=== PATIENT | female | born 1980 | race Caucasian/White ===

== ENCOUNTER 2017-03-16 17:14 | Emergency (ER) | payer MEDICAID ==
[2017-03-16 18:04] VITALS: BMI 28.3
[2017-03-16 18:49] LABS: BASO # 0.1 K/uL (0.0-0.2); BASO % 0.6 % (0.0-2.0); EOS # 0.1 K/uL (0.0-0.7); EOS % 0.7 % (0.0-4.0); LYMPH # 3.1 K/uL (1.0-4.3); LYMPH % 29.6 % (20.0-40.0); MEAN CELL VOLUME 79.1 fL (81.0-99.0); MEAN CORPUSCULAR HEMOGLOBIN 25.5 pg (27.0-31.0); MEAN CORPUSCULAR HGB CONC 32.2 g/dL (33.0-37.0); MEAN PLATELET VOLUME 7.8 fL (7.2-11.7); MONO # 0.9 K/uL (0.0-0.8); MONO % 8.4 % (0.0-10.0); NEUT # 6.4 K/uL (1.8-7.0); NEUT % 60.7 % (50.0-75.0); NRBC % 0.1 % (0.0-2.0); RBC 4.71 Mil/uL (3.80-5.20); RED CELL DISTRIBUTION WIDTH 15.1 % (11.5-14.5); WHITE BLOOD COUNT 10.6 K/uL (4.8-10.8)
[2017-03-16 18:57] LABS: ALBUMIN 3.5 g/dL (3.5-5.0); ALT/SGPT 25 U/L (9-52); AST/SGOT 18 U/L (14-36); BLOOD UREA NITROGEN 6 mg/dL (7-17); CALCIUM 8.9 mg/dl (8.6-10.4); GFR AFRICAN-AMERICAN > 60; GFR NON-AFRICAN AMERICAN > 60; URIC ACID 3.3 mg/dL (2.2-7.5)
[2017-03-16 19:04] LABS: SQUAMOUS EPITHIAL 18 /hpf (0-5); URINE BACTERIA RARE (<OCC); URINE BILIRUBIN NEGATIVE (NEGATIVE); URINE BLOOD NEGATIVE (NEGATIVE); URINE CLARITY Hazy (Clear); URINE COLOR Yellow (YELLOW); URINE GLUCOSE (UA) 3+ mg/dL (Normal); URINE LEUKOCYTE ESTERASE NEG Leu/uL (Negative); URINE NITRATE NEGATIVE (NEGATIVE); URINE PROTEIN 2+ mg/dL (NEGATIVE); URINE UROBILINOGEN NORMAL mg/dL (0.2-1.0)
--- NOTE | 2017-03-16 19:57 | US ---
EXAM: US Biophysical Profile Without Non-Stress Testing EXAM DATE/TIME: Exam ordered 03/16/2017 6:05 PM CLINICAL HISTORY: 36 years old, female; Signs and symptoms; Other: Elevated BP; TECHNIQUE: Real-time ultrasound of the maternal pelvis for biophysical profile evaluation with image documentation. COMPARISON: No relevant prior studies available. FINDINGS: Presentation: Cephalic Cervix: 3.3 cm in length Heart rate: 150 beats per minute Placenta: Anterior and free of the cervical os OBI: 15.4 Estimated weight: 2520 g Biometry BPD = [8.7 cm]; Estimated Menstrual Age = [35 w 1 d]; Range = [32W 2D-38W 3D] HC = [30.67 cm]; Estimated Menstrual Age = [34 w 1 d]; Range= [+/-64L0T-68T0Z] AC = [31.1 cm]; Estimated Menstrual Age = [35 w 0 d]; Range = [+/- 49E5A-62X9Q] FL = [6.79 cm]; Estimated Menstrual Age = [34 w 6 d]; Range = [+/- 07O3U-89H2 D] breathing movements: Present. Score 2/2. Gross body movements: Present. Score 2/2. tone: Present. Score 2/2. Qualitative amniotic fluid volume: Within normal limits. Score 2/2. survey: Three-vessel cord: Normal Abdominal CORD insertion: Normal Kidneys: Normal Stomach: Normal IMPRESSION: 1. Normal biophysical profile ultrasound. Score 8/8. 2. Single live intrauterine with an estimated menstrual age of 34 weeks and 6 days plus or -2 weeks and 3 days. Expected date of confinement 04/21/2017
--- NOTE | 2017-03-16 20:41 | OBHP ---
Datetime: 03/16/2017 18:05 IP Admit Plan: Observation/Evaluation; Discharge home Admit Comment, IP Provider: CC: Evaluation for elevated BP HPI: Patient is a 36 year old at 34 weeks and 4 days with LMP ( 07/17/16) with RUKHSANA (04/23/17 ) dated by US. Patient presents to labor and delivery as per her provider for noted elevated BP readi ng in the clinic. Patient denies fever, chills, nausea, vomiting, chest pain, palpitations, epigastri c or RUQ pain, blurry vision, headache. 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 Unemployed. Denies currr ent or former tobacco, ETOH and illicit drug use VS: BP: 120/78, HR: 115 Physical Exam: See above A/P: 36 year old at 34.4 weeks referred from clinic for evaluation of elevated BP 140-150/ 80 1. Stable, Afebrile 2. CEFM 3. BPP/US---> BPP(8), Vertex, placenta anterior 4. induced hypertension panel: CMP, CBC, LDH, URIC ACID---> PIH panel within normal limi ts 5. UA: 2+ protein, negative for UTI 5. Discharge with prescription for 24 hour urine collection, to f/u outpatient 6. Plans discussed with attending Zaire Faulkner DO, PGY-1 Attending Note: patient seen and evaluated by me with Resident. - Transient BP elevations: most likely psychogenic (patient was anxious after visit); how ever, with proteinuria, cannot exclude pre-eclampsia. BPs on L_D 117-140/71-88. - A1GDM. patient has not been keeping a log of F.S. Has repeat glucose test tomorrow. glucosuria n oted (patient last ate approx 1100 hours) Plan: 1) as above. Extremities - PN: Normal Abdomen - PN: Normal Lungs - PN: Normal Heart - PN: Normal HEENT - PN: Normal General - PN: Normal FHR - Baseline A Provider: 140 Comments, ACOG Physical Exam: Gen: NAD Cardio: RRR, normal S1, S2 Pulm: CTA bilaterally Abdomen: Soft, gravid, FH: 35cm Ext: No edema, no cyanosis and no clubbing EFM: -FHR: 140, + accels, - accels - [place]: None Gestation - Est Wks by US: 34.4 NICHD Decel Fetus A IP Provider: None
[2017-03-17 00:51] VITALS: BP 126/84; PULSE 123; RESP 18; TEMP 98.7; O2SAT 99
== END 2017-03-16 20:00 | disposition home or self-care (01) ==
LOC: C.EROB 17:14
DX: O16.3 Unspecified maternal hypertension, third trimester (principal); Z3A.34 34 weeks gestation of pregnancy

== ENCOUNTER 2017-04-05 15:01 | Emergency (ER) | payer MEDICAID ==
--- NOTE | 2017-04-05 15:23 | OBHP ---
Datetime: 04/05/2017 15:19 IP Adm Impression: Term, intrauterine IP Chief Complaint Other: r/o preeclampsia Admit Comment, IP Provider: at 37+weks her for r/o preeclampsia,no hecahe or blurry vision, no ctxs, vvb, lof+fm. obhx 2 x ,1x sab pmh gd,a1 med pnv all nkda psh den soch den ve /-3 a/p at 37weeks r/o preeclampsia npo/ivf pih labs bp monitoring cont carroll and efm cont close Pelvic Type - PN: Adequate Extremities - PN: Normal Abdomen - PN: Normal Back - PN: Normal Breast - PN: Normal Lungs - PN: Normal Heart - PN: Normal Thyroid - PN: Normal Neurologic - PN: Normal HEENT - PN: Normal General - PN: Normal FHR - Baseline A Provider: 130 Contraction Comments Provider: irrg Vital Signs Provider: Reviewed; Within Normal Limits NICHD Variability Prov Fetus A: Moderate 6-25bpm NICHD Accel Fetus A IP Provider: 10X10 FHR Category Provider Fetus A: Category I Dilatation, Provider: 1 Effacement, Provider: 50 Station, Provider: -3 Genitourinary Exam: Normal DTRs - PN: Normal
[2017-04-05 15:26] VITALS: BMI 29.2
[2017-04-05] MEDS ORDERED: Lactated Ringer's 1,000 ML IV SCH (15:30)
[2017-04-05 15:58] LABS: HEMOGLOBIN 12.1 g/dL (11.0-16.0); MEAN CELL VOLUME 77.9 fL (81.0-99.0); MEAN CORPUSCULAR HEMOGLOBIN 25.5 pg (27.0-31.0); MEAN CORPUSCULAR HGB CONC 32.8 g/dL (33.0-37.0); MEAN PLATELET VOLUME 8.2 fL (7.2-11.7); RBC 4.74 Mil/uL (3.80-5.20); RED CELL DISTRIBUTION WIDTH 15.8 % (11.5-14.5); WHITE BLOOD COUNT 8.7 K/uL (4.8-10.8)
[2017-04-05 16:05] LABS: SQUAMOUS EPITHIAL 16 /hpf (0-5); URINE BACTERIA RARE (<OCC); URINE BILIRUBIN NEGATIVE (NEGATIVE); URINE BLOOD NEGATIVE (NEGATIVE); URINE CLARITY Hazy (Clear); URINE COLOR Yellow (YELLOW); URINE GLUCOSE (UA) NORMAL (Normal); URINE LEUKOCYTE ESTERASE TRACE Leu/uL (Negative); URINE NITRATE NEGATIVE (NEGATIVE); URINE PROTEIN 1+ mg/dL (NEGATIVE); URINE UROBILINOGEN NORMAL mg/dL (0.2-1.0)
[2017-04-05 16:06] LABS: PROTHROMBIN TIME 11.1 SECONDS (9.7-12.2)
[2017-04-05 16:23] LABS: ALBUMIN 3.7 g/dL (3.5-5.0); ALT/SGPT 26 U/L (9-52); AST/SGOT 33 U/L (14-36); BILIRUBIN,DIRECT 0.1 mg/dL (0.0-0.4); BLOOD UREA NITROGEN 7 mg/dL (7-17); CALCIUM 9.4 mg/dl (8.6-10.4); GFR AFRICAN-AMERICAN > 60; GFR NON-AFRICAN AMERICAN > 60
--- NOTE | 2017-04-05 17:12 | OBHP ---
Datetime: 04/05/2017 17:08 Admit Comment, IP Provider: pt as seen at bed side. feels good,no hedache r blurry vision blood work nor bp nor plan dc home preeclamtic s/s given labor ins given po hy f/u in [facility] on 03/09/17 FHR - Baseline A Provider: 130 Contraction Comments Provider: irrg Vital Signs Provider: Reviewed; Within Normal Limits NICHD Variability Prov Fetus A: Moderate 6-25bpm NICHD Accel Fetus A IP Provider: 15X15 FHR Category Provider Fetus A: Category I
--- NOTE | 2017-04-05 17:14 | OBDCSUM ---
Datetime: 04/05/2017 17:11 Discharged to, Provider: Home Follow up at, Provider: 04/09 Follow up in weeks, Provider: [facility] (formerly [facility])[3] Discharge Comment, Provider: dc home preeclamtic s/s given labor ins given po hy f/u in [facility] on 03/09/17 Discharge Diagnosis Prov Other: 37wek pih gdma1
[2017-04-05 21:47] VITALS: BP 127/69; PULSE 110; TEMP 97.9
== END 2017-04-05 17:25 | disposition home or self-care (01) ==
LOC: C.EROB 15:01
DX: O26.93 Pregnancy related conditions, unspecified, third trimester (principal); Z3A.37 37 weeks gestation of pregnancy
CPT/HCPCS: 80053; 81001; 82248; 82948; 83615; 85027; 85610; 85730; 99283; J7120

== ENCOUNTER 2017-04-08 19:49 | Inpatient (IN) | payer MEDICAID ==
[2017-04-08] MEDS ORDERED: Penicillin G 5 Million Unit Vial IVPB ONE ×2 (21:06→21:56)
[2017-04-08] MEDS ORDERED: Lactated Ringer's 1,000 ML IV SCH (21:15)
[2017-04-08 21:42] LABS: BASO % 0.5 % (0.0-2.0); EOS # 0.1 K/uL (0.0-0.7); EOS % 0.7 % (0.0-4.0); HEMOGLOBIN 12.1 g/dL (11.0-16.0); LYMPH # 3.4 K/uL (1.0-4.3); LYMPH % 35.5 % (20.0-40.0); MEAN CELL VOLUME 77.3 fL (81.0-99.0); MEAN CORPUSCULAR HEMOGLOBIN 25.4 pg (27.0-31.0); MEAN CORPUSCULAR HGB CONC 32.8 g/dL (33.0-37.0); MONO # 0.8 K/uL (0.0-0.8); MONO % 8.3 % (0.0-10.0); NEUT # 5.3 K/uL (1.8-7.0); NRBC % 0.1 % (0.0-2.0); RBC 4.77 Mil/uL (3.80-5.20); WHITE BLOOD COUNT 9.6 K/uL (4.8-10.8)
[2017-04-08 21:52] LABS: SQUAMOUS EPITHIAL 16 /hpf (0-5); URINE BACTERIA RARE (<OCC); URINE BILIRUBIN NEGATIVE (NEGATIVE); URINE BLOOD NEGATIVE (NEGATIVE); URINE CLARITY Hazy (Clear); URINE GLUCOSE (UA) 3+ mg/dL (Normal); URINE LEUKOCYTE ESTERASE NEG Leu/uL (Negative); URINE NITRATE NEGATIVE (NEGATIVE); URINE PROTEIN 1+ mg/dL (NEGATIVE); URINE UROBILINOGEN NORMAL mg/dL (0.2-1.0)
[2017-04-08 21:53] LABS: URINE COLOR YELLOW (YELLOW)
[2017-04-08 21:59] LABS: ALBUMIN 3.5 g/dL (3.5-5.0); ALT/SGPT 24 U/L (9-52); AST/SGOT 21 U/L (14-36); BLOOD UREA NITROGEN 6 mg/dL (7-17); GFR AFRICAN-AMERICAN > 60; GFR NON-AFRICAN AMERICAN > 60
[2017-04-09] MEDS ORDERED: cefOXitin 2 GM in Sodium Chloride 0.9% 100 ML IVPB ONE (03:06)
[2017-04-09] MEDS ORDERED: Sodium Citrate/Citric Acid 15 ml Sol PO ONE (03:15)
[2017-04-09] MEDS ORDERED: Morphine 1 mg/ml preservative-free Inj(Duramorph) ONE (03:26)
[2017-04-09] MEDS ORDERED: Oxytocin 30 UNIT 0 UNITS/0 ML BAG IV ONE (03:49)
[2017-04-09] MEDS ORDERED: Oxytocin 10 Units/ml Inj ONE (03:52)
[2017-04-09] MEDS ORDERED: Phenylephrine 10 mg/ml Inj ONE (04:20)
--- NOTE | 2017-04-09 04:53 | PCM.SURG1 ---
Surgeon's Initial Post Op Note - Surgeon's Notes Surgeon: Dr Andrew Follow Up Rep: Dr Benz Type of Anesthesia: Spinal Anesthesia Administered By: Dr Harp Pre-Operative Diagnosis: IUP at 38wks in labor,. Non reassuring Heart rate tracing. GDMA1 Operative Findings: Live female infant with BW of 7ibs 10oz , scores of 9 and 9, delivered in cephalic presentation in REG, fundal placenta, clear amniotic fluid. Fundal placenta. Uterus, both fallopian tubes and ovaries appears normal. IVF 1500mls. EBL- 600mls. Urine output- 200mls Post-Operative Diagnosis: Same as Preop diagnosis Operation Performed: Primary Low transverse Section. Specimen/Specimens Removed: Placenta Estimated Blood Loss: EBL {In ML}: 600 Blood Products Given: N/A Post-Op Condition: Good Date of Surgery/Procedure: 04/09/17 Time of Surgery/Procedure: 04:55
[2017-04-09] MEDS ORDERED: Lactated Ringer's 1,000 ML IV SCH (05:15)
[2017-04-09] MEDS: Simethicone 80 mg Chewtab PO SCH ×4 (09:27→21:05)
[2017-04-09] MEDS: cefOXitin 2 GM in Sodium Chloride 0.9% 100 ML IVPB SCH ×2 (12:40→20:21)
--- NOTE | 2017-04-09 16:23 | OP ---
PROCEDURE DATE: 04/09/2017 SURGEON: Edilberto Andrew MD MEAT LOINER: Dakotah Benz MD. Assistance to this procedure was needed for exposure of tissues and help in the delivery of the baby. Polygraph Technician remained with the surgery throughout its entire length. PREOPERATIVE DIAGNOSES: Intrauterine at 38 weeks in labor with nonreassuring heart tracing, gestational diabetes mellitus A1. POSTOPERATIVE DIAGNOSES: Intrauterine at 38 weeks in labor with nonreassuring heart tracing, gestational diabetes mellitus A1. PROCEDURE: Primary low-transverse section. TYPE OF ANESTHESIA: Spinal, anesthesia administered by Maverick Harp MD. OPERATIVE FINDINGS: Live female with weight of 7 pounds 10 ounces, scores of 9 in the first and fifth minutes respectively. Delivered in cephalic presentation in the left occipital anterior position. Placenta was fundal. There was no nuchal cord. Amniotic fluid was clear. The uterus as well as both fallopian tubes and ovaries appeared normal. IV fluid intake was 1500 mL. Estimated blood loss 600 mL. Urine output 200 mL of clear urine. There were no complications. SPECIMENS SENT: Placenta and umbilical cord blood. DESCRIPTION OF PROCEDURE: After obtaining informed consent after going through all the risks, benefits, and alternatives to the procedure of the section including but not restricted to injury to vital organs like bladder, bowels, and major blood vessels and the possibility of hemorrhage leading to hysterectomy, the patient obtained a consent. The patient was then sent to the OR with IV running and Pierre catheter in place. The patient sat on the OR table, and after adequate spinal anesthesia, was put in a supine position with a left lateral tilt. The patient was then prepped and draped in the usual sterile fashion. A Pfannenstiel skin incision was made using a scalpel about 2.5 cm from the pubic symphysis. This incision was carried through the subcutaneous tissues. The rectus fascia was identified. Using a Bovie device, a transverse incision was made in the rectus fascia, and this was extended to both sides by means of blunt dissection and sharp dissection. The rectus fascia was lifted off the underlying rectus muscles both superiorly and inferiorly by means of blunt dissection and sharp dissection with Brannon scissors. The rectus muscle was in the midline to expose the peritoneum which was tented between two Arely clamps and sharply entered with good visualization of the bladder. Once the abdominal cavity was entered, the vesicouterine fold of peritoneum was identified, was incised in a transverse fashion using the Metzenbaum scissors, and then this was retracted inferiorly to expose the lower uterine segment. A low-transverse incision was made at this point using a scalpel. The incision was extended through the myometrial layer, so the underlying amniotic membranes were identified. The incision was extended to both sides by means of a blunt dissection. Amniotic membranes were ruptured with pickup forceps, and the baby which was positioned in the left occipital anterior position in the cephalic presentation was delivered. The mouth and nostrils were bulb suctioned, and the three-vessel cord was clamped and cut, and the baby was given to the nurse. Umbilical cord blood was obtained for analysis. The placenta was manually removed from the uterine cavity. The uterus was then brought out of the abdominal cavity, and the uterine cavity cleaned of all debris using dry laparotomy pad. The uterine incision was then closed in two layers using Vicryl #0. The first layer in a running locked fashion and the second layer in a running fashion imbricating the first layer. This was conducted until hemostasis was noted. Irrigation of the pelvis using warm normal saline was done at this time to remove all clots in the pelvis. The uterus was then returned into the abdominal cavity, and once all the lap instruments were taken out of the abdomen, attention was turned to the anterior abdominal wall which was closed in layers with 2-0 Vicryl for the peritoneum and the rectus muscles. The rectus fascia was reapproximated using Vicryl #0. The subcutaneous tissues were brought together by means of #2-0 plain catgut. The skin was closed in a subcuticular fashion using #4-0 Vicryl. All counts of instruments, laparotomy pads, and needles used were correct x3, and the patient was sent to the recovery room awake and in stable condition. Edilberto Andrew MD
[2017-04-09] MEDS: Oxycodone/Acetaminophen 5/325 mg Tab PO PRN (20:17)
[2017-04-10] MEDS: cefOXitin 2 GM in Sodium Chloride 0.9% 100 ML IVPB SCH (03:01)
[2017-04-10 08:47] LABS: BASO # 0.1 K/uL (0.0-0.2); BASO % 0.7 % (0.0-2.0); EOS % 0.4 % (0.0-4.0); HEMOGLOBIN 10.8 g/dL (11.0-16.0); LYMPH # 2.7 K/uL (1.0-4.3); LYMPH % 20.8 % (20.0-40.0); MEAN CELL VOLUME 77.9 fL (81.0-99.0); MEAN CORPUSCULAR HEMOGLOBIN 25.1 pg (27.0-31.0); MEAN CORPUSCULAR HGB CONC 32.2 g/dL (33.0-37.0); MEAN PLATELET VOLUME 7.9 fL (7.2-11.7); MONO # 0.7 K/uL (0.0-0.8); MONO % 5.6 % (0.0-10.0); NEUT # 9.4 K/uL (1.8-7.0); NEUT % 72.5 % (50.0-75.0); NRBC % 0.1 % (0.0-2.0); RBC 4.32 Mil/uL (3.80-5.20); WHITE BLOOD COUNT 12.9 K/uL (4.8-10.8)
[2017-04-10] MEDS: Oxycodone/Acetaminophen 5/325 mg Tab PO PRN ×2 (09:01→17:11)
[2017-04-10] MEDS: Simethicone 80 mg Chewtab PO SCH ×4 (10:04→21:00)
--- NOTE | 2017-04-10 12:28 | OBPPN ---
Datetime: 04/10/2017 08:28 PP Pain Prov: Within normal limits PP Nausea Prov: Denies PP Flatus Prov: Yes PP BM Prov: No PP Breasts Prov: Normal PP Heart Prov: Normal PP Lungs Prov: Normal PP Abdomen/Uterus Prov: Normal PP Lochia Prov: Normal PP Extremities Prov: Normal PP C/S Incision Prov: Normal PP Progress Prov: Normal PP Comments Phys Exam Prov: pfannensteil incision: c/d/i PP Impression Prov: Normal progression PP Plan Prov: Continue present management PP Progress Note Prov: Patient seen and examined at bedside. Per nursing no acute events overnight. Patient is doing well, pain is controlled. States having pain at incision site, 7/10. Lochia is moder ate. Ambulating and tolerating. Passing flatus, no BM. Urinating without difficulty. Breast and bottl e feeding. Denies headaches, dizziness, cp, palpitations, sob, urinary symptoms. VS: 113/69 75 99.0 I/O 2375/1100 Gen: AAOx3 CV: RRR Lungs: CTA B/L Abdomen: soft, appropriately tender, hypoactive bowel sounds, incision c/d/i, fundus firm at umbil icus Ext: No clubbing, cyanosis, edema; no calf tenderness Labs: 9.6>12.1/36.9<365 F/U am CBC B positive Rubella immune A/P: 36 year old at 38w0d s/p PLTCD 2/2 NRFHT POD#1 -Stable, afebrile -Pain contol: Percocet and motrin prn -F/U am CBC -Encourage ambulation and hydration -Encourage breast feeding and ISS use -Continue routine care -Plan discussed with Dr Prince Araujo DO PGY-1 ob attending addaendum: pt seen _ examined by me. agree w/ above assessment andplan w/ following modifications and additio ns. p: d/c motrin or nsaids for pain- may cause increase in BP and pt w/ h/p gest htn sennokot s begin today. rx in chart for d/c- pnv, feso4, sennokots, _ percocet. pt advised percocet can be addicting and use sparingly. may supplement w/ tylenol. advised not to use motrin/nsaids given se of increase in bp. IP PP Procedures: None Vital Signs Provider PP: Reviewed; Within Normal Limits
[2017-04-10] MEDS ORDERED: Oxycodone/Acetaminophen 5/325 mg Tab PO PRN (16:06)
[2017-04-10] MEDS: Docusate-Senna 50 mg-8.6 mg Tab PO PRN (17:11)
[2017-04-11 07:40] VITALS: RESP 18
[2017-04-11] MEDS: Simethicone 80 mg Chewtab PO SCH ×4 (10:00→21:34)
[2017-04-11] MEDS: Docusate-Senna 50 mg-8.6 mg Tab PO PRN (12:04)
[2017-04-11] MEDS: Oxycodone/Acetaminophen 5/325 mg Tab PO PRN (14:53)
[2017-04-11] MEDS ORDERED: Bisacodyl 5mg EC Tab PO ONE (16:06)
--- NOTE | 2017-04-11 17:40 | OBPPN ---
Datetime: 04/11/2017 07:45 PP Pain Prov: Within normal limits PP Nausea Prov: Denies PP Flatus Prov: Yes PP BM Prov: No PP Heart Prov: Normal PP Lungs Prov: Normal PP Lochia Prov: Normal PP CVA Tenderness Prov: Normal PP Extremities Prov: Normal PP C/S Incision Prov: Normal PP Progress Prov: Normal PP Impression Prov: Normal progression PP Plan Prov: Continue present management PP Progress Note Prov: Patient seen and examined at bedside. Per nursing no acute events overnight. Patient is doing well, pain is controlled. Lochia is moderate and decreasing. Ambulating and tolerati ng diet. Passing flatus, no BM. Urinating without difficulty. Breast and bottle feeding. Denies heada ches, dizziness, cp, palpitations, sob, urinary symptoms. VS: 123/66 80 97.9 Gen: AAOx3 CV: RRR Lungs: CTA B/L Abd: Soft, appropriately tender, incision c/d/i, fundus firm at umbilicus Ext: No clubbing, cyanosis, edema; no calf tenderness Labs: 9.6>12.1/36.9<365 12.9>10.8/33.7<343 B positive Rubella immune A/P: 36 year old at 38w0d s/p PLTCD 2/2 NRFHT POD#2 -Stable, afebrile -Pain control: percocet prn -Encourage ambulation and hydration -Encourage breast feeding -Continue routine care -Anticipate d/c home tomorrow -Plan discussed with attending Michela Araujo DO PGY-1 patient examined.agree with residen exam, assessment and plan Vital Signs Provider PP: Reviewed; Within Normal Limits
[2017-04-11 18:20] VITALS: O2SAT 99
--- NOTE | 2017-04-12 07:29 | OBDCSUM ---
Datetime: 04/12/2017 07:27 Discharged to, Provider: Home Follow up at, Provider: 1-2wee Discharge Diagnosis, Provider: Term Delivered Follow up in weeks, Provider: clinic Discharge Comment, Provider: no sex percocet prn f/u in 2week Discharge Diagnosis Prov Other: sa/p c/s
--- NOTE | 2017-04-12 07:30 | OBPPN ---
Datetime: 04/12/2017 07:26 PP Pain Prov: Within normal limits PP Nausea Prov: Denies PP Flatus Prov: Yes PP Abdomen/Uterus Prov: Normal PP Lochia Prov: Normal PP Extremities Prov: Normal PP Comments Phys Exam Prov: fudus below um ext no edema,no calgf ten incision clean and dry PP Impression Prov: Normal progression PP Plan Prov: Discharge PP Progress Note Prov: pt was seen at bed side, pain under control,no n/v, tolerating deit,voiding,m in lochia, flatus+ pod#3 s/p c/s dc home no sex percocet prn f/u dr rgeco in 2week Vital Signs Provider PP: Reviewed; Within Normal Limits
[2017-04-12] MEDS: Simethicone 80 mg Chewtab PO SCH (10:53)
[2017-04-12 18:18] VITALS: BP 126/84; PULSE 74; TEMP 97.7
== END 2017-04-12 13:50 | disposition home or self-care (01) | DRG 371 ==
LOC: C.EROB 19:49 → C.4D 21:00 → C.4M 04-09 09:13
PROVIDERS: ADMIT Obstetrics & Gynecology; ATTEND Obstetrics & Gynecology
PROC: 10D00Z1 Extraction of Products of Conception, Low, Open Approach (ICD-10-PCS; principal; 2017-04-09)
DX: O76 Abnormality in fetal heart rate and rhythm complicating labor and delivery (principal); O24.429 Gestational diabetes mellitus in childbirth, unspecified control; O99.824 Streptococcus B carrier state complicating childbirth; Z3A.38 38 weeks gestation of pregnancy; Z37.0 Single live birth